=== PATIENT | female | born 2000 | race Caucasian/White ===

== ENCOUNTER 2019-09-07 01:56 | Emergency (ER) | payer BC ==
[2019-09-07 02:01] VITALS: TEMP 98.9; BMI 22.3
--- NOTE | 2019-09-07 02:25 | PDOC ---
Attending Attestation - Resident Resident Name: Derick England - ED Attending Attestation I have performed the following: I have examined & evaluated the patient, The case was reviewed & discussed with the resident, I agree w/resident's findings & plan - HPI HPI: 09/07/19 06:52 see resident hpi - Physicial Exam PE: 09/07/19 06:53 agree with resident exam - Medical Decision Making 09/07/19 06:53 19-year-old female status post vasovagal episode after smoking excessive marijuana and hookah Patient feeling better after 1 L of IV fluid normal saline Labs unremarkable DC'd with outpatient pulmonary follow-up as discussed
[2019-09-07] MEDS ORDERED: SODIUM CHLORIDE 0.9% 500 ML INFUS.BAG IV ONE (02:55)
[2019-09-07 03:31] LABS: BASO % 0.3 % (0-2.0); HEMATOCRIT 43.7 % (32.4-45.2); LYMPH % 11.5 % (8-40); MCH 32.5 pg (25.7-33.7); MCHC 34.4 g/dl (32.0-36.0); MEAN CELL VOLUME 94.6 fl (80-96); MEAN PLT VOLUME 9.2 fl (7.5-11.1); NEUT % 78.2 % (42.8-82.8); PLATELET COUNT 209 K/MM3 (134-434); RBC 4.62 M/mm3 (3.60-5.2); RDW 15.6 % (11.6-15.6); WHITE BLOOD COUNT 7.9 K/mm3 (4.0-10.0)
[2019-09-07 03:36] LABS: EPI CELLS 3.4 /HPF (0-5/HPF); HYALINE CASTS 0 /lpf (0-8); URINE APPEARANCE CLEAR; URINE BACTERIA 144.1 /hpf (NEGATIVE); URINE BILIRUBIN NEGATIVE (NEGATIVE); URINE COLOR YELLOW; URINE GLUCOSE (UA) NEGATIVE (NEGATIVE); URINE KETONE NEGATIVE (NEGATIVE); URINE LEUK ESTERASE NEGATIVE (NEGATIVE); URINE NITRITE NEGATIVE (NEGATIVE); URINE PROTEIN NEGATIVE (NEGATIVE); URINE RBC 3 /hpf (0-4); URINE UROBILINOGEN 0.2 mg/dL (0.2-1.0); URINE WBC 1 /hpf (0-5)
--- NOTE | 2019-09-07 03:56 | PDOC ---
History of Present Illness - General Chief Complaint: Weakness Stated Complaint: dizziness Time Seen by Provider: 09/07/19 02:24 - History of Present Illness Initial Comments: 09/07/19 03:43 19f with no pmh presents to the ED for episode of syncope after smoking marijuana and hookah throughout the day. She remember walking in a hallways after smoking and feeling drained, before passing out. Witnesses saw her with tremors after she passed out. No incontinence after waking up. Doesnt smoke often but she when she does, she smokes all day. Past History - Past Medical History Allergies/Adverse Reactions: Allergies Allergy/AdvReac Type Severity Reaction Status Date / Time No Known Allergies Allergy Verified 09/07/19 01:59 COPD: No - Psycho Social/Smoking Cessation Hx Smoking History: Never smoked Drug/Substance Use Hx: Yes (marijuana) Review of Systems - Review of Systems Able to Perform ROS?: Yes Is the patient limited Cuban proficient: No Constitutional: No: Symptoms Reported HEENTM: No: Symptoms Reported Respiratory: No: Symptoms reported Cardiac (ROS): No: Symptoms Reported ABD/GI: No: Symptoms Reported : No: Symptoms Reported Musculoskeletal: No: Symptoms Reported Integumentary: No: Symptoms Reported Neurological: Yes: Dizziness All Other Systems: Reviewed and Negative *Physical Exam - Vital Signs Last Vital Signs Temp Pulse Resp BP Pulse Ox 98.9 F 108 H 18 116/75 99 09/07/19 02:00 09/07/19 02:00 09/07/19 02:00 09/07/19 02:00 09/07/19 02:00 - Physical Exam General Appearance: Yes: Nourished, Appropriately Dressed. No: Apparent Distress HEENT: positive: EOMI, BHARAT, Normal ENT Inspection Respiratory/Chest: positive: Lungs Clear, Normal Breath Sounds. negative: Chest Tender, Respiratory Distress Cardiovascular: positive: Regular Rhythm, Regular Rate, S1, S2 Gastrointestinal/Abdominal: positive: Normal Bowel Sounds, Flat, Soft. negative : Tender Extremity: positive: Normal Capillary Refill, Normal Inspection, Normal Range of Motion Integumentary: positive: Normal Color, Dry, Warm Neurologic: positive: Fully Oriented, Alert, Normal Mood/Affect, Normal Response ED Treatment Course - LABORATORY CBC & Chemistry Diagram: 09/07/19 03:09 09/07/19 03:09 - ADDITIONAL ORDERS Additional order review: Laboratory Results 09/07/19 09/07/19 03:09 03:09 Urine Color Yellow Urine Appearance Clear Urine pH 8.0 Ur Specific [place] 1.015 Urine Protein Negative Urine Glucose (UA) Negative Urine Ketones Negative Urine Blood 2+ H Urine Nitrite Negative Urine Bilirubin Negative Urine Urobilinogen 0.2 Ur Leukocyte Esterase Negative Urine WBC (Auto) 1 Urine RBC (Auto) 3 Urine Casts (Auto) 0 U Epithel Cells (Auto) 3.4 Urine Bacteria (Auto) 144.1 Urine HCG, Qual Negative - RADIOLOGY Radiology Studies Ordered: Category Date Time Status CXRPORT [CHEST X-RAY PORTABLE*] [RAD] Stat Radiology 09/07/19 03:20 Ordered - Medications Given in the ED: ED Medications Discontinued Medications Generic Name Dose Route Start Last Admin Trade Name Freq PRN Reason Stop Dose Admin Sodium Chloride 1,000 ml 09/07/19 02:55 09/07/19 03:12 Normal Saline - IV 09/07/19 02:56 1,000 ml ONCE ONE Administration Medical Decision Making - Medical Decision Making 09/07/19 04:17 19F with episode of syncope following marijuana and hookah consumption. Basic labs, EKG within normal limits. 09/07/19 04:53 Xray normal, no acute processes. ok to dc Discharge - Discharge Information Problems reviewed: Yes Clinical Impression/Diagnosis: Vasovagal episode Condition: Good Disposition: HOME - Admission No - Follow up/Referral - Patient Discharge Instructions Patient Printed Discharge Instructions: DI for Syncope in Adults (Fainting) Additional Instructions: Come back to the emergency department for any new, worsening or concerning symptom. - Post Discharge Activity
[2019-09-07 04:14] LABS: BILIRUBIN,TOTAL 0.8 mg/dL (0.2-1); CALCIUM 8.9 mg/dL (8.5-10.1); POTASSIUM 3.8 mmol/L (3.5-5.1); TOT PROT 7.2 g/dl (6.4-8.2)
[2019-09-07 04:23] LABS: COCAINE, UR NEGATIVE ng/ml (CUTOFF=300); METHADONE, UR NEGATIVE ng/ml (CUTOFF=300); OPIATES, URI NEGATIVE ng/ml (CUTOFF=300); PHENCYCLIDINE,URINE NEGATIVE ng/ml (CUTOFF=25); URINE AMPHETAMINES NEGATIVE ng/ml (CUTOFF=500); URINE BARBITURATES NEGATIVE ng/ml (CUTOFF=200); URINE BENZODIAZEPINES NEGATIVE ng/ml (CUTOFF=200)
[2019-09-07 05:37] VITALS: BP 118/72; PULSE 94
--- NOTE | 2019-09-07 10:11 | EKG ---
Test Reason : Blood Pressure : / mmHG Vent. Rate : 108 BPM Atrial Rate : 108 BPM P-R Int : 158 ms QRS Dur : 088 ms QT Int : 346 ms P-R-T Axes : 063 081 047 degrees QTc Int : 463 ms SINUS TACHYCARDIA OTHERWISE NORMAL ECG NO PREVIOUS ECGS AVAILABLE Confirmed by JONO BERG, CARMEN ([id number]) on 09/07/2019 10:11:02 AM Referred By: Confirmed By:CARMEN DE LA CRUZ MD
== END 2019-09-07 05:25 | disposition home or self-care (01) ==
LOC: JER 01:56
PROC: 3E0337Z Introduction of Electrolytic and Water Balance Substance into Peripheral Vein, Percutaneous Approach (ICD-10-PCS; principal; 2019-09-07)
DX: R55 Syncope and collapse (principal)
CPT/HCPCS: 36415; 71045-TC-FY; 80053; 80307; 81003; 84703; 85025; 93005; 93010; 99283-25